=== PATIENT | male | born 1985 | race Two or more races ===

== ENCOUNTER 2022-11-16 04:20 | Emergency (ER) | payer MEDICAID ==
[~2022-11-16] VITALS: Ht 175.3 cm; Wt 110.5 kg
[2022-11-16 05:31] VITALS: TEMP 98
--- NOTE | 2022-11-16 06:35 | NUR ---
Reported to Dr. Guevara about patient inability to palpate his right testicle, complaining of right scrotum/lower abdominal pain. He said we will have ultrasound of the testicle done
--- NOTE | 2022-11-16 06:40 | NUR ---
Paged voip technician to get the testicular miladys done beka
[2022-11-16] MEDS ORDERED: HYDROcodone/acetaminophen 10/325mg tab PO ONE (06:55)
[2022-11-16] MEDS ORDERED: oxyCODONE/APAP 10/325mg tablet PO ONE (07:00)
--- NOTE | 2022-11-16 07:03 | NUR ---
design engineering technician at bedside. Dr. Moore saw the patient
--- NOTE | 2022-11-16 08:12 | NUR ---
pt refused percocet and wants to speak to the provider, will advise the provider
[2022-11-16 08:42] VITALS: BP 129/86; PULSE 85; RESP 15; O2SAT 97
--- NOTE | 2022-11-16 08:57 | NUR ---
Patient refused blood works. UA sent. Percocet 10 mg given. Addendum: 11/16/[address] Moore was notified about patient's refusal of blood works ordered.
[2022-11-16 09:05] LABS: BILIRUBIN,URINE NEGATIVE (Neg); CLARITY,URINE CLOUDY (Clear); COLOR,URINE YELLOW (Yellow); GLUCOSE, URINE NEGATIVE (Neg); KETONES,URINE NEGATIVE (Neg); LEUKOCYTE ESTERASE ,URINE NEGATIVE (Neg); NITRITES, URINE NEGATIVE (Neg); OCCULT BLOOD,URINE TRACE-INTACT (Neg); PROTEIN,URINE NEGATIVE (Neg)
[2022-11-16] MEDS ORDERED: OXYC-150 PO (09:16)
[2022-11-16 09:28] LABS: UA COLLECTION TYPE CLN CATCH MIDSTREAM
[2022-11-16 10:07] LABS: BACTERIA,URINE FEW /HPF (Neg); MUCUS STRANDS MODERATE /LPF (Neg); RBC,URINE 0-2 /HPF (0-2); SQUAMOUS EPITHELIAL CELL,UR FEW /LPF (FEW); WBC,URINE 0-4 /HPF (0-4)
== END 2022-11-16 09:31 | disposition home or self-care (01) ==
LOC: ER 04:21
DX: N50.811 Right testicular pain (principal); Z88.5 Allergy status to narcotic agent; Z79.899 Other long term (current) drug therapy
CPT/HCPCS: 76870; 81001; 93976; 99284